=== PATIENT | female | born 1990 | race Caucasian/White ===

== ENCOUNTER 2020-01-17 06:53 | Observation (INO) ==
[2020-01-17] MEDS ORDERED: *HR* Promethazine 25 MG/ML VIAL IVP PRN (15:15)
[2020-01-17] MEDS ORDERED: *HR* OxyCODONE Immed Rel 5 MG TABLET PO PRN (15:15)
[2020-01-17] MEDS ORDERED: Ondansetron 4 MG/2 ML VIAL IVP ONE (15:15)
[2020-01-17] MEDS ORDERED: Lidocaine 1% 20 ML MDV ONE (16:45)
[2020-01-17] MEDS ORDERED: Ondansetron 4 MG/2 ML VIAL ONE (17:11)
[2020-01-17] MEDS ORDERED: *HR* Midazolam HCl 2 MG/2 ML VIAL ONE (17:11)
[2020-01-17] MEDS ORDERED: Lidocaine -MPF 2% 2 ML VIAL ONE (17:11)
[2020-01-17] MEDS ORDERED: *HR* Propofol 200 MG/20 ML VIAL IVP ONE (17:11)
[2020-01-17] MEDS ORDERED: *HR* FentaNYL (PF) 100 MCG/2 ML VIAL ONE (17:11)
[2020-01-17] MEDS ORDERED: Ketorolac 30 MG/ML VIAL ONE (17:11)
[2020-01-17] MEDS ORDERED: Dexamethasone 4 MG/ML VIAL ONE (17:11)
[2020-01-17] MEDS ORDERED: Neostigmine Methylsulfate 3 MG/3 ML SYRINGE ONE (17:13)
[2020-01-17] MEDS: *HR* HYDROmorphone PF 0.5 MG/0.5 ML SYRINGE IVP PRN ×2 (18:05→18:26)
[2020-01-17] MEDS ORDERED: Ondansetron ODT 4 MG TAB.RAPDIS SL ONE (20:07)
[2020-01-17] MEDS ORDERED: Rho Immune Globulin 1,500 UNIT SYRINGE IM ONE (21:59)
[2020-01-17 22:14] VITALS: BP 106/73
== END 2020-01-17 22:00 | disposition home or self-care (01) ==
LOC: 1NENUOBS → EDSTATUS 12:14
PROVIDERS: ADMIT Obstetrics & Gynecology; ATTEND Obstetrics & Gynecology